=== PATIENT | female | born 1970 | race Caucasian/White ===

== ENCOUNTER 2023-12-15 17:34 | Emergency (ER) | payer OTHER ==
[2023-12-15 17:52] VITALS: BP 118/79; PULSE 103; RESP 16; TEMP 98.7; BMI 18.8
[2023-12-15] MEDS ORDERED: LIDOCAINE 5% TOPICAL PATCH ONE (17:54)
[2023-12-15] MEDS: LIDOCAINE 5% TOPICAL PATCH TP ONE (18:37)
[2023-12-15] MEDS ORDERED: AZITHROMYCIN 500 MG TABLET ONE (18:39)
[2023-12-15] MEDS: AZITHROMYCIN 250 MG TABLET PO ONE (18:40)
== END 2023-12-15 18:43 | disposition home or self-care (01) ==
LOC: FER 17:34
DX: R05.1 Acute cough (principal); R09.81 Nasal congestion; R49.0 Dysphonia; R50.9 Fever, unspecified; M79.10 Myalgia, unspecified site; R51.9 Headache, unspecified; R42 Dizziness and giddiness; J04.0 Acute laryngitis; J18.1 Lobar pneumonia, unspecified organism; Z20.822 Contact with and (suspected) exposure to COVID-19
CPT/HCPCS: 0241U-QW; 71046-TC-FY; 99284-25